=== PATIENT | male | born 1985 | race Caucasian/White ===

== ENCOUNTER 2020-08-22 11:07 | Day surgery (SDC) | payer OTHER ==
[~2020-08-22] VITALS: Ht 162.6 cm; Wt 78.8 kg
[2020-08-22] MEDS ORDERED: hydrALAZINE 20mg/ml inj. IV PRN (13:30)
[2020-08-22] MEDS ORDERED: fentaNYL/PF 50MCG/1 ML 2ML syringe IV PRN ×2 (13:30)
[2020-08-22] MEDS ORDERED: ondansetron/PF 4mg/2ml inj IV PRN (13:30)
[2020-08-22] MEDS ORDERED: morphine 2 MG/ML inj. syringe IV PRN (13:30)
[2020-08-22] MEDS ORDERED: ringers solution, lacted 1,000 ML IV SCH (13:30)
[2020-08-22] MEDS ORDERED: morphine 4 MG/ML inj SYRINge IV PRN (13:30)
[2020-08-22] MEDS ORDERED: labetalol 20mg/4ml (5mg/ml) syringe IV PRN (13:30)
[2020-08-22] MEDS ORDERED: FAMO20TA44 PO (14:27)
[2020-08-22] MEDS ORDERED: LIDOcaine 0.5% (5mg/ml) 50ml vial ONE (14:36)
[2020-08-22] MEDS ORDERED: fentaNYL/PF 50MCG/1 ML 2ML syringe ONE (14:39)
[2020-08-22] MEDS ORDERED: MIDAZolam 1mg/ml 10ml vial ONE (14:39)
[2020-08-22 14:46] LABS: BASOPHILS % (AUTO) 0.6 % (0-1); EOSINOPHILS # (AUTO) 0.1 X10'3 (0-0.9); EOSINOPHILS % (AUTO) 1.5 % (0-6); LYMPHOCYTES # (AUTO) 1.3 X10'3 (1.1-4.8); LYMPHOCYTES % (AUTO) 25.3 % (21-51); MEAN CORPUSCULAR HEMOGLOBIN 30.5 PG (27.0-31.0); MEAN CORPUSCULAR HGB CONC 35.2 g/dL (33.0-36.5); MEAN CORPUSCULAR VOLUME 86.7 FL (78-98); MEAN PLATELET VOLUME 7.4 FL (7.4-10.4); MONOCYTES # (AUTO) 0.4 X10'3 (0-0.9); MONOCYTES % (AUTO) 8.7 % (2-12); NEUTROPHILS # (AUTO) 3.3 X10'3 (1.8-7.7); NEUTROPHILS % (AUTO) 63.9 % (42-75); PRE OP HEMATOCRIT 48.6 % (42.0-52.0); PRE OP HEMOGLOBIN 17.1 g/dL (14.0-17.9); PRE OP PLATELET COUNT 288 X10'3 (140-440); RED CELL DISTRIBUTION WIDTH 12.6 % (11.5-14.5)
[2020-08-22] MEDS ORDERED: cefazolin/dext.iso 2,000MG/50 ML BAG IV ONE (14:50)
[2020-08-22 14:57] LABS: ALBUMIN 4.8 G/DL (3.4-5.0); ALBUMIN/GLOBULIN RATIO 1.2 (1.1-1.5); ALKALINE PHOSPHATASE 88 IU/L (46-116); BLOOD UREA NITROGEN 12 MG/DL (7-18); BUN/CREATININE RATIO 12.2 (5.4-32.0); CALCIUM 9.9 MG/DL (8.5-10.1); CHLORIDE 100 MMOL/L (99-107); CREATININE 0.98 MG/DL (0.60-1.10); PRE OP ANION GAP 9 (8-16); PRE OP AST 56 U/L (10-37); PRE OP BILIRUB, TOTAL 0.6 MG/DL (0.0-1.0); PRE OP GLUCOSE 94 MG/DL (70-104); PRE OP POTASSIUM 3.4 MMOL/L (3.4-5.1); PRE OP SODIUM 137 MMOL/L (135-145); TOTAL CARBON DIOXIDE 27.9 MMOL/L (24-32); TOTAL PROTEIN 8.7 G/DL (6.4-8.2); eGFR 86 ML/MIN
[2020-08-22 15:04] LABS: PRE OP ALT 123 U/L (30-65)
[2020-08-22 16:04] VITALS: BP 131/90
--- NOTE | 2020-08-22 16:04 | NUR ---
Received from OR via , accompanied by Anesthesiologist DR MORRIS and report given by Anesthesiolgist. AWAKENS TO VOICE. VITALS STABLE. DRESSING DI. DENISEM PAIN.
[2020-08-22 16:14] VITALS: BP 124/87
[2020-08-22 16:24] VITALS: BP 126/89
[2020-08-22 16:34] VITALS: BP 117/78
[2020-08-22 16:44] VITALS: BP 120/77
--- NOTE | 2020-08-22 17:04 | NUR ---
ALERT AND ORIENTED. VITALS STABLE. DRESSING/SPLINT DI. SILVIANO PAIN. HOME WITH HIS FATHER AT THIS TIME.
== END 2020-08-22 17:04 | disposition home or self-care (01) ==
LOC: ER 11:07 → PACU OUT 14:50
PROVIDERS: ATTEND Internal Medicine Infectious Disease
DX: S62.232A Other displaced fracture of base of first metacarpal bone, left hand, initial encounter for closed fracture (principal); Z20.828 Contact with and (suspected) exposure to other viral communicable diseases; M79.642 Pain in left hand; G89.18 Other acute postprocedural pain; Z72.89 Other problems related to lifestyle; W11.XXXA Fall on and from ladder, initial encounter; Y93.89 Activity, other specified; Y92.69 Other specified industrial and construction area as the place of occurrence of the external cause; Y99.8 Other external cause status
CPT/HCPCS: 26665; 36415; 64450; 80053; 85025; 87635; A6222; C1713; C9803; J2001; J2250; J3010; J7120; A4618; A6446; A6449; A7000

== ENCOUNTER 2020-08-22 21:17 | Emergency (ER) | payer OTHER ==
[~2020-08-22] VITALS: Ht 162.6 cm; Wt 75.0 kg
[~2020-08-22 21:17] MED LIST: FAMO20TA44 PO
[2020-08-22 21:25] VITALS: BP 152/102
[2020-08-22] MEDS ORDERED: oxyCODONE/APAP 10/325mg tablet PO ONE (22:50)
== END 2020-08-22 22:57 | disposition home or self-care (01) ==
LOC: ER 21:19
DX: G89.18 Other acute postprocedural pain (principal); R20.0 Anesthesia of skin; Z98.890 Other specified postprocedural states; Z79.899 Other long term (current) drug therapy
CPT/HCPCS: 99283

== ENCOUNTER 2020-08-24 04:38 | Emergency (ER) | payer OTHER ==
[~2020-08-24] VITALS: Ht 162.6 cm; Wt 75.0 kg
[2020-08-24 04:43] VITALS: BP 164/115
== END 2020-08-24 05:09 | disposition home or self-care (01) ==
LOC: ER 04:39
DX: M79.602 Pain in left arm (principal); R20.0 Anesthesia of skin; Z98.890 Other specified postprocedural states; Z79.899 Other long term (current) drug therapy
CPT/HCPCS: 99281; 99282